=== PATIENT | female | born 1995 | race Hispanic/Latino ===

== ENCOUNTER 2023-07-13 08:51 | Outpatient (CLI) | payer OTHER ==
[2023-07-13 09:37] LABS: Bacteria/HPF None Seen HPF (None Seen); RBC/HPF None Seen HPF (0-3); Squamous Epithelial 0-3 HPF (0-3); WBC/HPF 0-3 HPF (0-3)
[2023-07-13 09:53] LABS: Cardiac Risk 4.7 (Less than 4.5); Cholesterol 217 mg/dl (< 200 Desired); Glucose 123 mg/dL (70-105); HDL Cholesterol 46 mg/dL (>60 Neg Risk); LDL Cholesterol, Calculated 137 mg/dL; Triglycerides 168 mg/dL (Less than 150)
[2023-07-13 12:12] LABS: Hemoglobin A1c 5.7 % (4.0-6.0)
== END 2023-07-13 08:52 | disposition home or self-care (01) ==
LOC: BURLAB 08:51
PROVIDERS: ATTEND Naturopath
DX: E78.5 Hyperlipidemia, unspecified (principal); E55.9 Vitamin D deficiency, unspecified; E11.9 Type 2 diabetes mellitus without complications
CPT/HCPCS: 36415; 80061; 81015; 82306; 82947; 83036